=== PATIENT | male | born 1955 | race Caucasian/White ===

== ENCOUNTER 2025-01-01 09:40 | Inpatient (IN) | payer MEDICARE ==
[2025-01-01] VITALS (41 sets, daily range): BP systolic 125–170; BP diastolic 80–113
[~2025-01-01] VITALS: Ht 188 cm; Wt 94.5 kg
[2025-01-01] MEDS ORDERED: SODIUM CHLORIDE 0.9% 1,000 ML IV ONE (10:05)
[2025-01-01] MEDS ORDERED: ADENOSINE 6MG (3 MG/ML) SYR IV ONE (10:05)
[2025-01-01] MEDS ORDERED: dilTIAZem HCL 50 MG/10 ML SDV IV ONE (10:10)
[2025-01-01 10:24] LABS: BASO% 0.2 % (0-3); EOS% 1.8 % (0-8); HEMATOCRIT 48.5 % (39.0-50.0); HEMOGLOBIN 15.6 g/dl (14.0-18.0); IMMATURE GRANULOCYTES 0.2 % (0.0-5.0); LYMPH% 15.2 % (15-41); MEAN CORPUSCULAR HGB 28.6 pG CALC (26.0-32.0); MEAN CORPUSCULAR HGB CONC 32.2 g/dL CAL (32.0-36.0); MONO% 9.8 % (2-13); NEUT# 9.27 thou/uL (1.82-7.42); NEUT% 72.8 % (42-76); RED BLOOD COUNT 5.45 mill/uL (4.70-6.10)
[2025-01-01 10:48] LABS: INTERNATIONAL NORMALIZED RATIO 1.1 RATIO (0.7-1.3)
[2025-01-01 10:49] LABS: ALBUMIN 3.7 g/dL (3.2-5.0); BILIRUBIN, TOTAL 0.7 mg/dL (0.2-1.3); POTASSIUM 4.2 mmol/l (3.5-5.1); TOTAL PROTEIN 6.8 g/dL (6.3-8.2)
[2025-01-01 10:50] LABS: PROTHROMBIN TIME 12.1 SECONDS (9.0-12.5)
[2025-01-01] MEDS ORDERED: DILTIAZEM HCL 125 MG in SODIUM CHLORIDE 0.9% 100 ML IV ONE (10:50)
[2025-01-01] MEDS ORDERED: SODIUM CHLORIDE 0.9% 250 ML IV PRN (10:50)
--- NOTE | 2025-01-01 11:15 | NUR ---
PT RESTING IN BED WITH FAMILY AT BEDSIDE, PT IN NAD
[2025-01-01] MEDS ORDERED: LISINOPRIL10 MG PO (11:19)
--- NOTE | 2025-01-01 12:05 | NUR ---
PT IN ROOM WITH FAMILY, PT IN NAD DISTRESS AT THIS TIME
[2025-01-01] MEDS ORDERED: cefTRIAXone SODIUM 2 GM in SODIUM CHLORIDE 0.9% 100 ML IV ONE (12:10)
[2025-01-01] MEDS ORDERED: AZITHROMYCIN 500 MG in SODIUM CHLORIDE 0.9% 500 ML IV ONE (12:10)
--- NOTE | 2025-01-01 13:29 | NUR ---
PT RESTING IN ROOM WITH FAMILY BY SIDE, GIVEN WATER TO DRINK
[2025-01-01] MEDS ORDERED: MAGNESIUM HYDROXIDE 30 ML UDC PO PRN (14:10)
[2025-01-01] MEDS ORDERED: Zaleplon 5 MG/CAP PO PRN (14:10)
[2025-01-01] MEDS ORDERED: ACETAMINOPHEN 325 MG/TAB PO PRN (14:10)
--- NOTE | 2025-01-01 14:11 | NUR ---
RN TO CT WITH PATIENT FOR CTA
[2025-01-01] MEDS ORDERED: ENOXAPARIN SODIUM 100 MG/ML SYR SC SCH (15:00)
--- NOTE | 2025-01-01 15:40 | NUR ---
PT REPORT GIVEN TO ICU NURSE SARA
--- NOTE | 2025-01-01 15:53 | NUR ---
PT IS IN ROOM, REPORT RECIEVED FROM ASSISTANT MERCHANDISER.
--- NOTE | 2025-01-01 15:54 | NUR ---
PT AT BEDSIDE. PT IS IN BED WITH CALL LIGHT IN HAND
--- NOTE | 2025-01-01 17:09 | NUR ---
DR. URIBE NOTIFIED OF SEPSIS RISK.
--- NOTE | 2025-01-01 18:03 | NUR ---
DAUGHTER VALERIO GAVE ME HER NUMBER TO NOTIFY HER OF ANY CHANGES [phone]. THE PT HAS GIVEN A VERBAL OKAY TO CONACT HER AND GIVE HER ANY INFORMATION.
--- NOTE | 2025-01-01 18:05 | NUR ---
PT IS LAYING IN BED WATCHING TV. CALL LIGHT IN HAND
--- NOTE | 2025-01-01 19:50 | NUR ---
awake. denies resp distress. drafter geological shows a fib pvcs. ivf infusing well per lac site. po fluids taken well. voids per urinal. fall precautions cont.
[2025-01-01] MEDS ORDERED: DILTIAZEM HCL 125 MG in SODIUM CHLORIDE 0.9% 100 ML IV PRN (21:20)
--- NOTE | 2025-01-01 22:00 | NUR ---
watching tv. no c/o voiced. cardiac nmonitor shows a fib pvcs.
[2025-01-02] VITALS (27 sets, daily range): BP systolic 118–152; BP diastolic 78–99
--- NOTE | 2025-01-02 00:05 | NUR ---
lab here. blood drawn.
--- NOTE | 2025-01-02 02:00 | NUR ---
eyes closed. no distress. youth nutritional monitor shows a fib pvcs.
--- NOTE | 2025-01-02 03:00 | NUR ---
pulse ox shows 88%. o2 began @ 2 l/m.
--- NOTE | 2025-01-02 06:00 | NUR ---
lab here. blood drawn.
[2025-01-02 06:24] LABS: CHOLESTEROL HDL RATIO 3.8 (<4.4 (CALC))
--- NOTE | 2025-01-02 08:00 | NUR ---
PT IS LAYING IN BED AWAKE. CALL LIGHT IN REACH.
--- NOTE | 2025-01-02 10:00 | NUR ---
PT IS SITTING IN BED, CALL LIGHT IN REACH.
--- NOTE | 2025-01-02 10:30 | NUR ---
PT BROUGHT DOWN TO ULTRASOUND ROOM MYSELF AND TECH. PT ON CARDIZEM, OXYGEN AND TELEMETRY. PT WAS BROUGHT BACK AFTER PROCEDURE AND IS IN HIS ROOM. WITH THE CALL LIGHT IN REACH.
--- NOTE | 2025-01-02 12:00 | NUR ---
PT IS LAYING IN BED AWSKE WITH FAMILY AT THE BEDSIDE. CALL LIGHT IN REACH.
[2025-01-02] MEDS ORDERED: METOPROLOL TARTRATE 50 MG/TAB PO SCH (13:00)
[2025-01-02] MEDS ORDERED: AZITHROMYCIN 500 MG in SODIUM CHLORIDE 0.9% 500 ML IV SCH ×2 (13:00→20:00)
--- NOTE | 2025-01-02 16:00 | NUR ---
PT IS WATCHING TV IN BED, CALL LIGHT IN REACH.
--- NOTE | 2025-01-02 17:57 | NUR ---
REPORT GIVEN TO LOUIE. PT BROUGHT UP VIA WHEELCHAIR WITH TELEMETRY
[2025-01-02] MEDS ORDERED: APIXABAN BASE 5 MG TAB PO SCH (21:00)
[2025-01-03] VITALS (10 sets, daily range): BP systolic 121–156; BP diastolic 68–97
[2025-01-03 05:22] LABS: HEMATOCRIT 44.1 % (39.0-50.0); HEMOGLOBIN 14.1 g/dl (14.0-18.0); MEAN CELL VOLUME 90.6 fL CALC (80.0-100.0); RED BLOOD COUNT 4.87 mill/uL (4.70-6.10); RED CELL DISTRI WIDTH 13.2 % (11.5-15.5)
[2025-01-03 05:31] LABS: BILIRUBIN, TOTAL 0.6 mg/dL (0.2-1.3); CREATININE 0.9 mg/dL (0.7-1.3); MAGNESIUM 2.1 mg/dL (1.6-2.3)
[2025-01-03 05:36] LABS: ALBUMIN 2.8 g/dL (3.2-5.0); TOTAL PROTEIN 5.3 g/dL (6.3-8.2)
[2025-01-03] MEDS ORDERED: AZITHROMYCIN 500 MG in SODIUM CHLORIDE 0.9% 250 ML IV SCH (13:00)
--- NOTE | 2025-01-03 19:50 | NUR ---
awake. denies resp diff. monitor car operator shows sinus rhythm pacs. po fluids taken well. voids per urinal. fall precautions cont.
[2025-01-03] MEDS ORDERED: RIVAROXABAN 20 MG TAB PO SCH (21:04)
--- NOTE | 2025-01-04 00:01 | NUR ---
eyes closed. no awakened for vitals.
--- NOTE | 2025-01-04 04:10 | NUR ---
cream gatherer shows sinus rhythm pacs hr 74.
[2025-01-04 04:30] VITALS: BP 138/93
[2025-01-04 06:02] VITALS: BP 141/91
[2025-01-04 06:13] LABS: HEMATOCRIT 43.3 % (39.0-50.0); HEMOGLOBIN 14.1 g/dl (14.0-18.0); MEAN CELL VOLUME 89.6 fL CALC (80.0-100.0); MEAN CORPUSCULAR HGB 29.2 pG CALC (26.0-32.0); MEAN CORPUSCULAR HGB CONC 32.6 g/dL CAL (32.0-36.0); RED BLOOD COUNT 4.83 mill/uL (4.70-6.10)
[2025-01-04 06:34] LABS: ALBUMIN 2.8 g/dL (3.2-5.0); BILIRUBIN, TOTAL 0.6 mg/dL (0.2-1.3); POTASSIUM 4.3 mmol/l (3.5-5.1); TOTAL PROTEIN 5.3 g/dL (6.3-8.2)
[2025-01-04 07:10] VITALS: BP 141/91
--- NOTE | 2025-01-04 07:42 | NUR ---
MD AT BEDSIDE DISCUSSING PLAN OF CARE WITH PT.
--- NOTE | 2025-01-04 07:55 | NUR ---
PT IS AOX3, RESPIRATIONS ARE EVEN AND UNLABORED ON ROOM AIR, LUNGS ARE CLEAR THROUGHOUT, DRESSING ON BACK IS CLOEA, DRY, INTACT, BOWEL SOUNDS ARE ACTIVE, PEDAL PULSES ARE PALPABLE TO TOUCH, PT DENIES PAIN AT THIS TIME.
[2025-01-04] MEDS ORDERED: XARELTO20 MG PO (07:58)
[2025-01-04] MEDS ORDERED: LOPRESSOR 550 MG/TAB PO (07:58)
[2025-01-04] MEDS ORDERED: OMNICEF300 MG PO (07:59)
[2025-01-04 08:19] VITALS: BP 141/91
--- NOTE | 2025-01-04 10:21 | NUR ---
REVIEWED DISCHARGE INSTRUCTIONS WITH PT AND PT'S , ANSWERED PT QUESTIONS, REVIEWED NEW MEDICATIONS. REMOVED IV, REMOVED TELE BOX AND PLACED IT IN THE RETURN BIN AT THE NURSES STATION.
--- NOTE | 2025-01-05 11:36 | NUR ---
Discharge follow up call completed Patient states he is a little weak but doing well. No issues noted since his discharge from the hospital. Patient is taking prescribed medications as directed. Patient will schedule a follow up appointment with his PCP. No needs or concerns verbalized by patient at this time.
== END 2025-01-04 10:22 | disposition home or self-care (01) | DRG 308 ==
LOC: ED 09:40 → ED-I 12:09 → ED 12:28 → ED-I 12:29 → MS2 15:46
PROVIDERS: Family Medicine; ADMIT Internal Medicine; ATTEND Internal Medicine
PROC: 0W9B3ZZ Drainage of Left Pleural Cavity, Percutaneous Approach (ICD-10-PCS; principal; 2025-01-02)
DX: I48.91 Unspecified atrial fibrillation (principal); J18.9 Pneumonia, unspecified organism; J91.8 Pleural effusion in other conditions classified elsewhere; I10 Essential (primary) hypertension; K40.90 Unilateral inguinal hernia, without obstruction or gangrene, not specified as recurrent; M54.16 Radiculopathy, lumbar region; R23.2 Flushing; T45.515A Adverse effect of anticoagulants, initial encounter; F17.200 Nicotine dependence, unspecified, uncomplicated
CPT/HCPCS: J0456; J0696; J1650; Q9967